=== PATIENT | female | born 1935 | race American Indian/Alaskan Native ===

== ENCOUNTER 2019-09-26 13:14 | Outpatient (CLI) | payer MEDICARE ==
--- NOTE | 2019-09-26 14:50 | Mammography Report ---
DIGITAL SCREENING MAMMOGRAM WITH CAD, 09/26/2019 INDICATION: Routine screening mammography. Breast cancer survivor status post left partial mastectomy and radiation therapy. TECHNIQUE: Digital bilateral 2D mammography was obtained in the craniocaudal and mediolateral obliq ue projections. This examination was interpreted with the benefit of Computer-Aided Detection analysi s. COMPARISON: None available. She has had a previous mammogram in [place], [place]. FINDINGS: Breast Density: The breasts are heterogeneously dense, which may obscure small masses. There is no evidence of dominant mass, suspicious calcifications or suspicious architectural distorti on in either breast. A left inner posterior postsurgical scar with surgical clips. Bilateral benign c alcifications. IMPRESSION: No mammographic evidence of malignancy. Follow up recommendation: Routine yearly BI-RADS Category 2: Benign. A "normal" or negative report should not discourage follow up or biopsy of a clinically significant f inding. A written summary of these findings will be mailed to the patient. The patient will be entered into a mammography reporting system which will generate a reminder letter for the patient's next appointmen t at the appropriate interval. [employer] recommends yearly mammograms starting at age 40 and continuing as l fili as a woman is in good health. Breast MRI is recommended for women with an approximate 20-25% or greater lifetime risk of breast cancer, including women with a strong family history of breast or ova arnav cancer or who have been treated for Hodgkin's disease. Signer Name: Naeem Peres MD Signed: 09/26/2019 2:46 PM Workstation Name: [id number]
--- NOTE | 2019-09-26 14:53 | XRay Report ---
Bilateral knees-6 total views INDICATION: M25.569 PAIN IN UNSPECIFIED KNEE. COMPARISON: None. IMPRESSION: No acute osseous or soft tissue abnormality. Moderate tricompartmental DJD. Signer Name: Gatito Earl MD Signed: 09/26/2019 2:49 PM Workstation Name: [id number]
== END 2019-09-26 13:15 | disposition home or self-care (01) ==
LOC: MAMMO 13:14
PROVIDERS: ATTEND Family Medicine
DX: Z12.31 Encounter for screening mammogram for malignant neoplasm of breast (principal); M25.569 Pain in unspecified knee
CPT/HCPCS: 77067